=== PATIENT | male | born 1950 | race Caucasian/White ===

== ENCOUNTER 2022-10-11 07:58 | Outpatient (AMB) | payer OTHER, SELFPAY ==
--- NOTE | 2022-10-11 07:59 | MHC.OFFVIS ---
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 Steen. He is s/p Left TKA 03/30/22, Right TKA 10/13/2019. The patient reports intermittent discomfort in both of his knees, right greater than left. He states that he has been doing quite a bit of hiking as well as daily walking. He has tried ibuprofen which gives her mild relief. He states that at times it feels like his right knee will give out. Allergies No Known Allergies Allergy (Verified 10/11/22 08:18) Medication List - Last Reconciled 10/11/22 by Desean Steen MD diltiazem HCl 240 mg PO DAILY lisinopril 20 mg PO DAILY pravastatin 80 mg PO DAILY [facility] Surgical History (Updated 10/11/22 @ 08:20 by Yuko Parekh [facility]) History of left knee replacement History of left shoulder replacement History of right shoulder replacement History of total right knee replacement Social History (Updated 10/11/22 @ 08:20 by Yuko Parekh [facility]) Current occupational status: retired Physical Exam Const Other: Well-nourished well-developed very friendly male awake alert and oriented x3 in no acute distress Extrem Other: Bilateral lower extremity examination shows good capillary refill, no skin lesions noted, normal sensation light touch Bilateral knee examination shows that the surgical incisions are well healed, no erythema, range of motion from -3 degrees to 120 degrees, his patellae track well, no instability Results Reviewed Results Reviewed: X-rays of the patient's right knee taken today show a total knee arthroplasty in good position with no signs of loosening, no acute bony abnormalities Assessment & Plan Assessment & Plan (1) Right knee pain: Code(s): M25.561 - Pain in right knee Plan Mr. Strauss continues to do fairly well after undergoing right total knee replacement surgery on 10/13/2019 as well as left total knee replacement surgery on 03/30/2022. He does have intermittent discomfort most likely due to overuse. I did prescribe him a hinged knee brace to help while he is hiking. I do feel that the brace is medically necessary to help prevent falls. He does know to take antibiotics before any dental work. I also gave him a prescription for meloxicam which he will take as needed. He will contact me prior to his follow-up appointment in 3 months should any questions or concerns arise. I spent 22 minutes in reviewing the patient's records and imaging studies, seeing the patient and documenting in the medical record. Orders: Orders XR knee RT 3V Today M25.561 - Pain in right knee XR knee RT 2V Today M25.561 - Pain in right knee Medications: New meloxicam 15 mg PO DAILY PRN 30 tabs 2RF pain oxycodone Partial Fill upon patient request. 5 mg PO Q12H PRN 30 caps 0RF pain Coding Level of Care Code Est Pt Level 2 (60309) Diagnoses Right knee pain M25.561
== END 2022-10-11 08:55 | disposition home or self-care (01) ==
PROVIDERS: Visit Provider Orthopaedic Surgery
DX: M25.561 Pain in right knee (principal)
CPT/HCPCS: 99212

== ENCOUNTER 2022-10-11 07:58 | Outpatient (REF) | payer MEDICARE, SELFPAY ==
--- NOTE | ~2022-10-11 | XR_ITS ---
EXAMINATION: XR KNEE, RIGHT CLINICAL INFORMATION: Pain in right knee COMPARISON: None available. TECHNIQUE: Three views of the right knee. FINDINGS: Status post total knee arthroplasty. Joint effusion. Hardware appears intact. XR/XR knee RT 3V IMPRESSION: Status post total knee arthroplasty. Joint effusion. Hardware appears intact.
== END 2022-10-11 07:59 | disposition home or self-care (01) ==
LOC: HO.HOSX 07:58
PROVIDERS: Visit Provider Orthopaedic Surgery
DX: M25.561 Pain in right knee (principal); Z79.899 Other long term (current) drug therapy
CPT/HCPCS: 73562